=== PATIENT | female | born 1980 | race Hispanic/Latino ===

== ENCOUNTER 2018-08-07 21:19 | Emergency (ER) | payer OTHER, MEDICAID ==
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
[2018-08-08] MEDS ORDERED: MOTRIN PO ONE (03:19)
[2018-08-08 03:23] VITALS: BP 104/63
== END 2018-08-08 03:40 | disposition home or self-care (01) ==
LOC: ED 21:19
DX: S16.1XXA Strain of muscle, fascia and tendon at neck level, initial encounter (principal); R51 Headache; M25.512 Pain in left shoulder; F17.200 Nicotine dependence, unspecified, uncomplicated; Z98.51 Tubal ligation status; Z79.899 Other long term (current) drug therapy; V89.2XXA Person injured in unspecified motor-vehicle accident, traffic, initial encounter; Y93.89 Activity, other specified; Y99.8 Other external cause status; Y92.410 Unspecified street and highway as the place of occurrence of the external cause
CPT/HCPCS: 72040; 99283